=== PATIENT | male | born 1950 | race Caucasian/White ===

== ENCOUNTER 2018-05-26 13:35 | Outpatient (CLI) | payer MEDICARE, OTHER ==
--- NOTE | 2018-05-26 15:20 | MRI ---
MRI LUMBAR SPINE NONCONTRAST: History: Low back pain. FINDINGS: Radiographs are not available for direct correlation. Due to the position of the normal appearing con us medullaris and the appearance of ribs, the transitional vertebrae at the lumbosacral junction will be designated as L5, with the remainder numbered accordingly. There is desiccation of all of the intervertebral discs. Very mild chronic appearing compression of t he T12 vertebral body without signal abnormality. Mild discogenic endplate changes within the bone ma rrow. T12-L1: Disc space narrowing. Mild posterior disc bulge. Thecal sac is patent. Mild bilateral foramin al stenosis. L1-2: Diffuse posterior disc protrusion. Circumferential degenerative changes with mild to moderate stenosis of the central canal. Severe bilateral foraminal stenosis. L2-3: Posterior disc bulge. Circumferential degenerative changes with mild stenosis of the central ca nal. Severe bilateral foraminal stenoses. L3-4: Posterior disc bulge. Circumferential degenerative changes with mild stenosis of the central ca nal. Severe bilateral foraminal stenoses. L4-5: Mild posterior disc bulge. Mild stenosis of the central canal. Severe bilateral foraminal steno ses, left worse than right. L5-S1: Mild osteophytosis. Thecal sac and neural foramina are patent. IMPRESSION: 1. Severe multilevel degenerative changes throughout the lumbar spine, most severely involving the lo wer neural foramina as detailed above. Please note that transitional vertebra is present at the lumbo sacral junction and has been designated as the fifth vertebral segment based on position of the conus medullaris and the lowest most ribs. POS: [facility]
== END 2018-05-26 13:36 | disposition home or self-care (01) ==
LOC: MRI 13:35
PROVIDERS: ATTEND Family Medicine
DX: M54.5 Low back pain (principal); M47.896 Other spondylosis, lumbar region; M48.061 Spinal stenosis, lumbar region without neurogenic claudication; M51.86 Other intervertebral disc disorders, lumbar region; M99.83 Other biomechanical lesions of lumbar region; M51.26 Other intervertebral disc displacement, lumbar region; M25.78 Osteophyte, vertebrae
CPT/HCPCS: 72148

== ENCOUNTER 2019-01-20 10:13 | Observation (INO) | payer MEDICARE ==
[2019-01-20 11:06] LABS: #Eosinphils 0.1 thou/uL (0.0-0.7); #Lymphocytes 1.7 thou/uL (1.20-3.40); #Monocytes 1.3 thou/uL (0.11-0.59); #Neutrophils 13.6 thou/uL (1.40-6.50); %Basophils 0.2 % (0.0-1.0); %Eosinophils 0.6 % (0.0-10.0); %Lymphocytes 9.9 % (21.0-51.0); %Monocytes 7.6 % (0.0-10.0); %Neutrophils 81.7 % (42.0-75.0); Hemoglobin 14.3 g/dL (14.0-18.0); Mean Corpuscular HGB CONC 32.8 g/dL (32.0-36.0); Mean Corpuscular Hemoglobin 31.6 pg (27.0-31.0); Mean Corpuscular Volume 96.4 fL (78.0-98.0); Mean Platelet Volume 7.5 fL (7.4-10.4); Platelet Count 239 thou/uL (130-400); RBC Distribution Width 12.1 % (11.5-14.5); Red Blood Cell (RBC) Count 4.53 mill/uL (4.70-6.10); White Blood Cell (WBC) Count 16.7 thou/uL (4.8-10.8)
[2019-01-20 11:31] LABS: ALT (SGPT) 16 U/L (8-55); AST (SGOT) 18 U/L (5-34); Albumin 4.3 g/dL (3.4-4.8); Alkaline Phosphatase 72 U/L (40-150); Anion Gap 8 mmol/L (10-20); BUN (Urea Nitrogen) 16 mg/dL (8.4-25.7); Bilirubin, Total 0.8 mg/dL (0.2-1.2); Calc. Creatinine Clearance 0 mL/min (70-130); Calcium 9.3 mg/dL (7.8-10.44); Carbon Dioxide 28 mmol/L (23-31); Chloride 105 mmol/L (98-107); Estimated GFR-MDRD 80; Globulin 2.4 g/dL (2.4-3.5); Glucose 88 mg/dL (80-115); Potassium 4.3 mmol/L (3.5-5.1); Protein, Total 6.7 g/dL (5.8-8.1); Sodium 137 mmol/L (136-145)
--- NOTE | 2019-01-20 14:24 | RAD ---
PORTABLE AP CHEST RADIOGRAPH: Date: 01-20-19 History: Hypotension. Comparison: None available. FINDINGS: Cardiac silhouette is magnified by projection. Pulmonary vasculature is within normal limits. The gloria gs are clear. Remote right sided rib fractures are seen. Degenerative changes are noted in the spine. There is bilateral acromioclavicular joint osteoarthritis. Vascular calcifications are seen in the t horacic aorta. IMPRESSION: No acute cardiopulmonary process. POS: [facility]
[2019-01-20] MEDS ORDERED: traMADol HCl 50 MG TAB PO PRN (14:29)
[2019-01-20] MEDS ORDERED: Senokot S 8.6-50 MG TAB PO PRN (14:29)
[2019-01-20] MEDS ORDERED: Acetaminophen 325 MG TAB PO PRN (14:29)
[2019-01-20] MEDS ORDERED: HYDROcodone/Acetaminophen 5/325 mg Tablet PO PRN (14:29)
[2019-01-20] MEDS ORDERED: Guaifenesin DM 100-10/5 ML UDCUP PO PRN (14:29)
[2019-01-20 14:56] LABS: Bilirubin Negative (Negative); Blood, Urine Negative (Negative); Clarity CLEAR (Clear); Glucose, Urine (Dipstick) Negative (Negative); Leukocyte Negative (Negative); Nitrite Negative (Negative); Protein, Urine (Dipstick) Negative (Neg-Trace); Specific Gravity, Urine 1.008 (1.002-1.036); Urobilinogen 0.2 mg/dL (0.2-1.0); pH, Urine 7.5 (5.0-9.0)
[2019-01-20 14:59] LABS: Troponin I Less than 0.010 ng/mL (< 0.028)
--- NOTE | 2019-01-20 15:18 | HP ---
REASON FOR ADMISSION: Syncope. HISTORY OF PRESENTING ILLNESS: The patient gives history of taking all his blood pressure medications along with niacin, [place] supplement, and another supplement to reduce his triglycerides, all of which this morning. The niacin, omega-3 supplements, and another triglyceride lowering supplement were new that he got in the mail yesterday. He also started on Norvasc from last 2 days. After this, he ate his breakfast and tried to get up, felt dizzy. He wanted to go to his bedroom from the kitchen, but he could not make it. The patient says his knees buckled out and tried to lean onto the wall and had a safe fall. at bedside says that the patient was trying to communicate and passed out in between for less than a minute or so. This happened nearly 3 times. The patient apparently woke up and complained of palpitations. Finally, EMS was summoned and the patient was brought here. Complaints of cough with clear sputum due to allergies. He also smokes half pack a day. No complaints of urinary frequency or burning urination. He says he has history of prostate enlargement. No fever at home. The patient has chronic back pain, but nothing new at present. No chest pain or shortness of breath at present. PAST MEDICAL AND SURGICAL HISTORY: History of hypertension; benign prostatic hypertrophy; dyslipidemia; history of hep C, likely treated; hernia surgery; left arm broken bone surgery; right wrist surgery; history of broken ribs; pneumothorax in January of 1980. He has had damage in his neck at the C3 level, right knee surgery, colonoscopy, left knee replacement. CURRENT MEDICATIONS: 1. He was started on amlodipine 5 mg daily from last 2 weeks. 2. He also started taking niacin, omega-3 supplement, and another supplement to lower triglycerides all from today. 3. Lisinopril 20 mg p.o. q.a.m. 4. Omeprazole 40 mg p.o. q.a.m. 5. Finasteride 5 mg p.o. daily. 6. Coreg 6.25 mg p.o. twice daily. 7. Atorvastatin 40 mg p.o. daily. 8. Tizanidine 4 mg p.o. three times daily. 9. Cetirizine 10 mg p.o. q.p.m. 10. Tadalafil 25 mg p.r.n. 11. Ultram 50 mg p.o. q.p.m. 12. Ventolin 90 mcg p.r.n. 13. Aspirin 81 mg p.o. daily. 14. CoQ10 200 mg p.o. daily. 15. Multivitamin 1 tablet once daily. 16. BC Powder q.a.m. PERSONAL HISTORY: Smokes half pack a day. Does not abuse alcohol or drugs. FAMILY HISTORY: Father had history of CABG, aneurysm, and high blood pressure. He also had prostate cancer. Mother had lymphoma. CODE STATUS: Full. POWER OF CONSERVATION OFFICER: His . REVIEW OF SYSTEMS: CONSTITUTIONAL: Negative for weight loss or gain, ability to conduct usual activities. SKIN: Negative for rash, itching. EYES: Negative for double vision, pain. ENT/MOUTH: Negative for nose bleeding, neck stiffness, pain, tenderness. CARDIOVASCULAR: Negative for palpitations, dyspnea on exertion, orthopnea. RESPIRATORY: Negative for shortness of breath, wheezing, cough, hemoptysis, fever or night sweats. GASTROINTESTINAL: Negative for poor appetite, abdominal pain, heartburn, nausea , vomiting, constipation, or diarrhea. GENITOURINARY: Negative for urgency, frequency, dysuria, nocturia. MUSCULOSKELETAL: Negative for pain, swelling. NEUROLOGIC/PSYCHIATRIC: Negative for anxiety, depression. ALLERGY/IMMUNOLOGIC: Negative for skin rash, bleeding tendency. Please see short and difficult for urgency, frequency, dysuria, nocturia. MUSCULOSKELETAL: Negative for pain, swelling. NEUROLOGIC/PSYCHIATRIC: Negative for anxiety, depression. ALLERGY/IMMUNOLOGIC: Negative for skin rash, bleeding tendency. PHYSICAL EXAMINATION: GENERAL: The patient is a 68-year-old male, who is currently not in any acute distress. VITAL SIGNS: Blood pressure on arrival was 103/66. When EMS arrived, the patient's blood pressure was 70/60. He was given 1 L bolus of fluid in the ER. Pulse is 60 per minute, respiratory rate 14 per minute, temperature 98.1 degrees Fahrenheit, saturating 100% on room air. NECK: Supple. No elevated JVD. HEENT: Eyes; extraocular muscles intact. Pupils reacting to light. Oral cavity, mucous membranes are dry. No exudates or congestion. CARDIOVASCULAR: S1 and S2 heard. Regular rhythm. RESPIRATORY SYSTEM: Air entry 1+ bilateral. No rales. There is rhonchi plus bilateral. ABDOMEN: Soft. Bowel sounds heard. No tenderness, rigidity, or guarding. EXTREMITIES: No peripheral edema or calf tenderness. VASCULAR: Peripheral pulses 1+ bilateral. No ischemic ulcerations or gangrene. CENTRAL NERVOUS SYSTEM: No gross focal deficits noted. The patient is alert, awake, and oriented well. PSYCHIATRIC: The patient's mood is euthymic. No hallucinations or delusions. LABORATORY DATA: White count of 16, H and H 14 and 43, platelet count 239 with 81% neutrophils, MCV is 96. Electrolytes stable. BUN 16, creatinine 0.9. Lactic acid 1.6. Liver enzymes within normal limits. Troponin I is less than 0.01. Albumin is 4.3. Chest x-ray done shows no acute cardiopulmonary process. EKG done shows normal sinus rhythm at 61 beats per minute. CLINICAL IMPRESSION AND PLAN: The patient will be under observation on telemetry for an episode of syncope with severe hypotension with systolic blood pressures dropping in his 70s. He also started 3 new supplements including niacin, fish oil, and another supplement to lower triglycerides. Unclear if this had anything to do with it. He has an elevated white count with left shift, but normal lactic acid. Blood culture has been obtained in the ER. We will obtain a urinalysis, orthostatic blood pressures, and we will place him on normal saline at 80 mL per hour for a total of 2 L. We will continue him on aspirin, Lipitor, Coreg, Proscar, lisinopril at 5 mg twice daily, Protonix, tizanidine, Ultram for his chronic back pain. The patient is to ambulate with a walking program later this evening or tomorrow morning. He can be discharged safely home in am if his vitals remain stable in am. Otherwise, we will closely monitor him on telemetry for now. The patient states he has had a stress test done [address] Mendoza office, which was negative. He was suspected to have mild peripheral vascular disease then. Job ID: [id number] [facility]
[2019-01-20 15:34] VITALS: BMI 27.8
[2019-01-20] MEDS: Carvedilol 6.25 MG TAB PO SCH (17:11)
[2019-01-20] MEDS: tiZANidine HCl 4 MG TAB PO SCH ×2 (17:11→21:45)
[2019-01-20 17:39] LABS: Troponin I Less than 0.010 ng/mL (< 0.028)
[2019-01-20] MEDS: Sodium Chloride 0.9% 1,000 ML IV SCH (17:45)
[2019-01-20] MEDS ORDERED: Atorvastatin Calcium 40 MG TAB PO SCH (21:00)
[2019-01-20] MEDS: Lisinopril 5 MG TAB PO SCH (21:44)
[2019-01-21 05:00] LABS: #Eosinphils 0.2 thou/uL (0.0-0.7); #Lymphocytes 2.2 thou/uL (1.20-3.40); #Monocytes 0.7 thou/uL (0.11-0.59); #Neutrophils 5.6 thou/uL (1.40-6.50); %Basophils 0.3 % (0.0-1.0); %Eosinophils 1.8 % (0.0-10.0); %Lymphocytes 24.9 % (21.0-51.0); Hemoglobin 12.6 g/dL (14.0-18.0); Mean Corpuscular HGB CONC 33.3 g/dL (32.0-36.0); Mean Corpuscular Volume 96.1 fL (78.0-98.0); Mean Platelet Volume 7.4 fL (7.4-10.4); Platelet Count 215 thou/uL (130-400); RBC Distribution Width 12.1 % (11.5-14.5); Red Blood Cell (RBC) Count 3.95 mill/uL (4.70-6.10); White Blood Cell (WBC) Count 8.7 thou/uL (4.8-10.8)
[2019-01-21 05:21] LABS: Anion Gap 12 mmol/L (10-20); BUN (Urea Nitrogen) 12 mg/dL (8.4-25.7); Calc. Creatinine Clearance 138 mL/min (70-130); Calcium 8.8 mg/dL (7.8-10.44); Carbon Dioxide 20 mmol/L (23-31); Chloride 110 mmol/L (98-107); Estimated GFR-MDRD Greater than 90; Glucose 84 mg/dL (80-115); Potassium 3.8 mmol/L (3.5-5.1); Sodium 138 mmol/L (136-145)
[2019-01-21] MEDS: Sodium Chloride 0.9% 1,000 ML IV SCH (06:19)
[2019-01-21] MEDS: Lisinopril 5 MG TAB PO SCH (08:47)
[2019-01-21] MEDS: Carvedilol 6.25 MG TAB PO SCH (08:48)
[2019-01-21] MEDS: tiZANidine HCl 4 MG TAB PO SCH (08:55)
[2019-01-21] MEDS ORDERED: Finasteride 5 MG TAB PO SCH (09:00)
[2019-01-21] MEDS ORDERED: Aspirin Chewable 81 MG TAB PO SCH (09:00)
[2019-01-21] MEDS ORDERED: Loratadine 10 MG TAB PO SCH (09:00)
[2019-01-21] MEDS ORDERED: Enoxaparin Sodium 40 MG/0.4 ML SYRINGE SC SCH (09:00)
[2019-01-21 11:41] VITALS: BP 136/62; TEMP 97.9
--- NOTE | 2019-01-22 12:48 | DIS ---
DATE OF ADMISSION: 01/20/2019 DATE OF DISCHARGE: 01/21/2019 PRIMARY CARE PROVIDER: Fariba Mccabe, DISCHARGE DIAGNOSES: 1. Syncope. 2. Hypotension. CONDITION: Condition of the patient on the day of discharge: Stable. I assessed Mr. Steele on the day of discharge. He denies any chest pain or shortness of breath. Vital signs are stable. He is not hypotensive. There is no orthostatic hypotension. S1 and S2 are heard, regular. Lungs are clear to auscultation bilaterally. DISCHARGE MEDICATIONS: 1. Amlodipine has been discontinued. 2. Lisinopril dose is decreased to 5 mg 2 times a day. Otherwise, no change was made to his pre-admission home medications as dictated by Dr. Pham in his history and physical note, dated January 20, 2019. HOSPITAL COURSE: Mr. Steele is a pleasant 68-year-old gentleman, who was admitted to [facility] on observation status on January 20, 2019 following a syncopal episode secondary to hypotension. Please refer to Dr. Pham's history and physical note, dated January 20, 2019 for further details. He received intravenous fluids. He improved clinically. Amlodipine was discontinued. Lisinopril dose was decreased. He had preliminary blood cultures, which were negative at the time of this dictation. He is advised to follow up with his primary care provider for final blood culture report. He is also advised to check his blood pressure and heart rate 3 times a day and show the readings to his primary care provider. LABORATORY DATA: On the day of discharge, he has white count of 8700, hemoglobin 12.6, platelet count 215,000. Sodium 138, potassium 3.8, and creatinine 0.69. He had 3 troponins that were negative during this hospitalization. Many thanks for allowing me to participate in your patient's care. Please feel free to contact me with any questions or concerns. DISCHARGE DESTINATION: Home. Job ID: [id number]
== END 2019-01-21 12:23 | disposition home or self-care (01) ==
LOC: ERS 10:13 → 2SW 13:20
PROVIDERS: ADMIT Internal Medicine; ATTEND Internal Medicine
DX: I95.9 Hypotension, unspecified (principal); I10 Essential (primary) hypertension; N40.0 Benign prostatic hyperplasia without lower urinary tract symptoms; E78.5 Hyperlipidemia, unspecified; F17.210 Nicotine dependence, cigarettes, uncomplicated; Z79.82 Long term (current) use of aspirin; Z79.899 Other long term (current) drug therapy
CPT/HCPCS: 71045; 80048; 80053; 81003; 83605; 84484 ×2; 85025 ×2; 87040; 87086; 93005; 96360; 96361 ×2; 96372; 99285; G0378 ×2; 36415; J1650

== ENCOUNTER 2019-04-07 11:36 | Outpatient (CLI) | payer MEDICARE, OTHER ==
--- NOTE | 2019-04-07 14:19 | RAD ---
CERVICAL SPINE 7 VIEWS: Date: 04/07/19 HISTORY: Cervical radiculopathy. FINDINGS: The vertebral bodies of the cervical spine maintain height. There are degenerative disc changes at al l levels. There is a slight posterolisthesis at C3-4 measured at 4-5 mm. This does not appear to sign ificantly change with flexion and extension. Posterior spondylosis noted at all levels. Loss of disc space is seen throughout, most prominent at C 5-6 and C6-7. Anterior osteophytes. Facet hypertrophy. Foraminal encroachment at numerous levels due to hypertrophic change. IMPRESSION: There are moderate degenerative changes of the cervical spine as described. POS: [facility]
--- NOTE | 2019-04-07 15:25 | MRI ---
MRI CERVICAL SPINE WITHOUT CONTRAST: Date: 04/07/19 Multiplanar, multisequential imaging of cervical spine obtained. INDICATION: Cervical radiculopathy. FINDINGS: Moderate to severe degenerative changes throughout the cervical spine. Loss of disc space at all leve ls. Prominent anterior osteophytes and posterior spondylosis. No evidence of significant vertebral johnny dy edema. No evidence of acute compression. At C2-3, mild disc bulge effaces the anterior subarachnoid space. No cord impingement or foraminal st enosis. At C3-4, posterior disc bulge and spondylosis compress the cord, indenting the anterior cord. Left fo raminal narrowing secondary to uncinate hypertrophy. There is a slight posterolisthesis at C3-4 measured at 3-4 mm. At C4-5, posterior disc bulge and spondylosis abut the anterior cord. Bilateral foraminal narrowing d ue to facet and uncinate hypertrophy. At C5-6, posterior disc bulge and spondylosis flatten the thecal sac and mildly efface the anterior s ubarachnoid space. No cord impingement. Mild foraminal narrowing due to facet and uncinate hypertroph y. At C6-7, posterior disc bulge and spondylosis compress the thecal sac and efface the anterior subarac hnoid space. These changes may abut the anterior cord. Bilateral foraminal encroachment due to facet and uncinate hypertrophy. Cord signal appears normal and preserved. IMPRESSION: 1. Moderately severe cervical canal stenosis at C3-4. There is a slight posterolisthesis and there a re posterior spondylitic changes which compress the cord as described above. 2. Posterior spondylosis is also prominent at C6-7 without significant cord impingement. See descrip tion at each level above. POS: [facility]
== END 2019-04-07 11:37 | disposition home or self-care (01) ==
LOC: BICMRI 11:36
PROVIDERS: ATTEND Anesthesiology Pain Medicine
DX: M47.22 Other spondylosis with radiculopathy, cervical region (principal); M48.02 Spinal stenosis, cervical region; M43.12 Spondylolisthesis, cervical region
CPT/HCPCS: 72052; 72141

== ENCOUNTER 2019-08-12 10:23 | Outpatient (CLI) | payer MEDICARE, OTHER ==
--- NOTE | 2019-08-12 12:13 | CT ---
Cervical spine CT without contrast: 08/12/2019 COMPARISON: None HISTORY: Cervical spondylosis with myelopathy, neck pain with right shoulder radiculopathy TECHNIQUE: Axial CT imaging at 2 mm intervals from skull base through lung apices. Coronal and sagitt al reformatted imaging FINDINGS: There is moderate degenerative change at the atlantoaxial interspace. Craniocervical juncti on and cervicothoracic junction appear intact. No significant anterolisthesis or retrolisthesis is noted within the cervical spine. The occipital condyles, the dens, and the C1 to articulation appear within normal limits. C2-3: No osseous cause of significant central canal or neural foraminal stenosis C3-4: Disc space narrowing present with posterior disc osteophyte complex causing moderate central ca nal stenosis, particularly on the right. Significant bilateral facet and uncovertebral osteophyte formation noted with moderate left and severe right neural foraminal stenosis. C4-5: Uncovertebral osteophyte formation noted, left greater than right. There is disc space narrowin g with small disc osteophyte complex. Probable mild central canal stenosis and mild/moderate neural foraminal stenosis, left greater than right. C5-6: There is disc space narrowing and bilateral facet/uncovertebral osteophyte formation, right gre ater than left. Moderate right and mild left neural foraminal stenosis suspected. Probable mild central canal stenosis. C6-7: There is disc space narrowing and degenerative endplate change with bilateral uncovertebral ost eophyte formation, left greater than right. Moderate left and mild/moderate right neural foraminal stenosis. C7-T1: Mild bilateral facet hypertrophy. No osseous cause of significant central canal or neural fora kelsea stenosis. There is a benign hemangioma associated with the C6 vertebral body and right C6 pedicle. No acute fracture or evidence of dislocation is seen. IMPRESSION: Multilevel cervical spine degenerative change as detailed above.
== END 2019-08-12 10:24 | disposition home or self-care (01) ==
LOC: BICCT 10:23
PROVIDERS: ATTEND Surgery
DX: M47.12 Other spondylosis with myelopathy, cervical region (principal)
CPT/HCPCS: 72125

== ENCOUNTER 2019-08-31 10:30 | Inpatient (IN) | payer MEDICARE, OTHER ==
[2019-10-05] MEDS ORDERED: Thrombin 5000 UNITS/5 ML VIAL ONE (06:35)
[2019-10-05] MEDS ORDERED: Sodium Chloride 0.9% 10 ML ONE ×2 (06:35→10:31)
[2019-10-05] MEDS ORDERED: Fentanyl 100 MCG/2 ML VIAL ONE ×4 (06:51→13:43)
[2019-10-05] MEDS ORDERED: Midazolam HCl 2 mg/2 ml Vial ONE (06:51)
[2019-10-05] MEDS ORDERED: Bacitracin Zinc Ointment 30 gm TUBE ONE (07:03)
[2019-10-05 07:19] LABS: #Basophils 0.1 thou/uL (0.0-0.2); #Eosinphils 0.3 thou/uL (0.0-0.7); #Lymphocytes 1.8 thou/uL (1.20-3.40); #Monocytes 0.6 thou/uL (0.11-0.59); #Neutrophils 6.2 thou/uL (1.40-6.50); %Eosinophils 2.9 % (0.0-10.0); %Lymphocytes 19.8 % (21.0-51.0); %Monocytes 6.6 % (0.0-10.0); %Neutrophils 69.7 % (42.0-75.0); Hemoglobin 14.1 g/dL (14.0-18.0); Mean Corpuscular HGB CONC 34.5 g/dL (32.0-36.0); Mean Corpuscular Hemoglobin 32.9 pg (27.0-31.0); Mean Corpuscular Volume 95.6 fL (78.0-98.0); Mean Platelet Volume 6.9 fL (7.4-10.4); Platelet Count 274 thou/uL (130-400); RBC Distribution Width 12.2 % (11.5-14.5); Red Blood Cell (RBC) Count 4.28 mill/uL (4.70-6.10); White Blood Cell (WBC) Count 8.9 thou/uL (4.8-10.8)
[2019-10-05 07:33] LABS: Anion Gap 12 mmol/L (10-20); BUN (Urea Nitrogen) 11 mg/dL (8.4-25.7); Calc. Creatinine Clearance 117 mL/min (70-130); Calcium 9.8 mg/dL (7.8-10.44); Carbon Dioxide 29 mmol/L (23-31); Chloride 105 mmol/L (98-107); Estimated GFR-MDRD Greater than 90; Glucose 88 mg/dL (80-115); Potassium 4.6 mmol/L (3.5-5.1); Sodium 141 mmol/L (136-145)
[2019-10-05 07:45] LABS: Prothrombin Time 12.9 SEC (12.0-14.7)
[2019-10-05] MEDS ORDERED: Vecuronium 10 MG VIAL ONE (09:41)
[2019-10-05] MEDS ORDERED: PHENYLEPHRINE-NS 100 MCG/ML 10 ML SYRINGE ONE ×2 (09:41→11:40)
[2019-10-05] MEDS ORDERED: Lidocaine 1% PF 5 ML VIAL ONE (09:41)
[2019-10-05] MEDS ORDERED: Rocuronium Bromide 10 MG/ML (10ML VIAL) ONE (09:41)
[2019-10-05] MEDS ORDERED: ePHEDrine/0.9% NaCl/PF SYRINGE 50 mg/10 ml ONE (09:41)
[2019-10-05] MEDS ORDERED: Ketorolac Tromethamine 30 MG/ML VIAL ONE (09:41)
[2019-10-05] MEDS ORDERED: PROPOFOL 200 MG/20 ML VIAL ONE (09:41)
[2019-10-05] MEDS ORDERED: Dexamethasone 20 MG/5 ML VIAL ONE (09:41)
[2019-10-05] MEDS ORDERED: Ondansetron PF 4 MG/2 ML Vial ONE (09:41)
[2019-10-05] MEDS ORDERED: Glycopyrrolate 0.2 MG/ML 5 ML SYRINGE ONE (09:41)
[2019-10-05] MEDS ORDERED: Phenylephrine HCL 10 MG/ML VIAL ONE (11:39)
[2019-10-05] MEDS ORDERED: Promethazine HCl 25 MG/ML VIAL SLOW IVP PRN ×2 (12:19→13:22)
[2019-10-05] MEDS ORDERED: Promethazine HCl 25 MG/ML VIAL IM PRN ×2 (12:19→13:22)
[2019-10-05] MEDS ORDERED: Ondansetron HCl/PF 4 MG/2 ML Vial IVP PRN ×2 (12:19→13:22)
[2019-10-05] MEDS ORDERED: HYDROmorphone 2 MG/ML VIAL SLOW IVP PRN (12:19)
[2019-10-05] MEDS ORDERED: Bisacodyl 10 MG SUPP PR PRN (13:18)
[2019-10-05] MEDS ORDERED: Fleet Enema 133 ML BOT PR PRN (13:18)
[2019-10-05] MEDS ORDERED: Mag-Al 1200 mg/1200 mg/30 ML UDCUP PO PRN (13:18)
[2019-10-05] MEDS ORDERED: Ondansetron PF 4 MG/2 ML Vial IVP PRN (13:18)
[2019-10-05] MEDS ORDERED: traMADol HCl 50 MG TAB PO PRN (13:18)
[2019-10-05] MEDS ORDERED: Milk Of Magnesia 30 ML UDCUP PO PRN (13:18)
[2019-10-05] MEDS ORDERED: Acetaminophen 325 MG TAB PO PRN (13:18)
[2019-10-05] MEDS ORDERED: Morphine Sulfate 2 MG/ML SYRINGE SLOW IVP PRN (13:22)
[2019-10-05] MEDS ORDERED: Diazepam 10 MG/2 ML SYRINGE IVP PRN (13:23)
[2019-10-05] MEDS ORDERED: PROVENTIL INHALER 6.7 G (200 INHALATIONS) INH PRN ×2 (13:26)
[2019-10-05] MEDS ORDERED: [UNRECOGNIZED DRUG - REMARK] FS PRN (13:38)
[2019-10-05] MEDS ORDERED: HYDROmorphone 0.5 MG/0.5 ML SYRINGE ONE ×2 (14:03→14:20)
--- NOTE | 2019-10-05 14:15 | OP ---
DATE OF PROCEDURE: 10/05/2019 LOCATION: OR 12. FIELD ARTILLERY TARGETING TECHNICIAN: Howard. PREPROCEDURE DIAGNOSIS: Multilevel cervical stenosis with myelopathy and radiculopathy. POSTPROCEDURE DIAGNOSIS: Multilevel cervical stenosis with myelopathy and radiculopathy. PROCEDURES PERFORMED: 1. Anterior C3-C4, C4-C5, C5-C6 diskectomies for decompression of spinal cord nerve roots. 2. Placement of interbody spacers, packed with local bone autograft, obtained from same incision, and allograft C3-C4, C4-C5, and C5-C6 for arthrodesis. 3. Anterior cervical plate and screw fixation, C3, C4, C5, C6. 4. Use of operative microscope for microdissection. 5. C3-C4, C4-C5, and C5-C6 laminectomies, partial facetectomies, and foraminotomies. 6. C3, C4, C5, C6 posterior screw reena fixation. 7. Lateral mass arthrodesis posterolaterally with local bone autograft obtained from same incision and allograft for fusion, C3-C4, C4-C5, C5-C6. DESCRIPTION OF PROCEDURE: After informed consent was obtained from the patient, the patient was brought to the OR. Proper patient, pause, and identification were carried out. He was placed under excellent general endotracheal anesthesia and positioned supine on the OR table. Right anterior oblique sonu was drawn out, which allowed for approach to the C3 through C6 segments anteriorly. This region was sterilely cleansed, prepared, and draped. Proper patient, pause, and identification were carried out. The wound was then opened with combination of sharp, monopolar, and blunt dissection. The anterior C3, C4, C5, C6 segments were exposed. Following procession to the cervical spine and sweeping of the longus colli muscles laterally, our trajectory was lateral to the larynx and pharynx and medial to the right carotid sheath. Localization film confirmed area of interest. We then performed distraction at C3-C4 and diskectomy was performed with use of the operative microscope for microdissection with decompression of the ventral portion of spinal cord and bilateral C4 nerve roots. The endplates were prepared and interbody spacer packed with graft was placed for initiation of arthrodesis. Distraction was released and the same procedure was done at C4-C5 and C5-C6 with diskectomy and decompression of the spinal cord at C5 nerve roots and C6 nerve roots respectively and the spinal cord at those segments of C4-C5 and C5-C6. The endplates were prepared accordingly and arthrodesis was initiated with placement of interbody spacers at C4-C5 and C5-C6. Microscope was then removed. Anterior cervical plate and screw fixation with final tightening then occurred at C3, C4, C5, C6. Copious irrigation occurred throughout as did maximize in hemostasis. The wound was then closed in anatomic layers over drain. The patient underwent placement of the Kumar Rivas to the skull and he was flipped prone and posterior linear incision was drawn out dorsally. This region was sterilely cleansed, prepared, and draped. Proper patient, pause, and identification were carried out. The wound was then opened with a combination of sharp, monopolar, and blunt dissection and a C3, C4, C5, C6 segment dorsal spines and lamina were exposed along with the lateral masses. Localization film confirmed area of interest. We then performed C3-C4, C4-C5 and C5-C6 laminectomies, partial facetectomies, and foraminotomies, and posterior screw reena fixation at C3, C4, C5, C6 with final tightening occurred. There was no spinal fluid leak. We then performed initiation of arthrodesis in the lateral masses over the posterior lateral regions at C3-C4, C4-C5, C5-C6. Copious irrigation occurred throughout as did maximize in hemostasis. The wound was closed in anatomic layers following sprinkling of vancomycin powder. The patient emerged from anesthesia. Job ID: [id number]
[2019-10-05] MEDS: HYDROcodone/Acetaminophen 7.5/325 mg Tablet PO PRN ×3 (16:09→23:57)
[2019-10-05] MEDS: Ketorolac Tromethamine 30 MG/ML VIAL IVP PRN (16:10)
[2019-10-05] MEDS: CEFAZOLIN 2 GM in Premix Bag 1 BAG IVPB SCH ×2 (16:17→23:58)
[2019-10-05] MEDS: Sodium Chloride 0.9% 1,000 ML IV SCH ×2 (16:17→20:25)
[2019-10-05 16:44] VITALS: BMI 27.1
[2019-10-05] MEDS: Morphine 2 MG/ML SYRINGE SLOW IVP PRN (17:38)
[2019-10-05] MEDS: Carvedilol 6.25 MG TAB PO SCH (20:15)
[2019-10-05] MEDS: Atorvastatin Calcium 40 MG TAB PO SCH (20:15)
[2019-10-05] MEDS: Finasteride 5 MG TAB PO SCH (20:16)
[2019-10-05] MEDS: Loratadine 10 MG TAB PO SCH (20:16)
[2019-10-05] MEDS: Lisinopril 5 MG TAB PO SCH (20:16)
[2019-10-05] MEDS: tiZANidine HCl 4 MG TAB PO PRN (23:57)
[2019-10-06] MEDS: Morphine 2 MG/ML SYRINGE SLOW IVP PRN ×2 (03:07→20:36)
[2019-10-06] MEDS: HYDROcodone/Acetaminophen 7.5/325 mg Tablet PO PRN ×4 (04:26→23:20)
[2019-10-06] MEDS: CEFAZOLIN 2 GM in Premix Bag 1 BAG IVPB SCH ×3 (06:04→23:21)
[2019-10-06] MEDS: Lisinopril 5 MG TAB PO SCH ×2 (08:52→20:27)
[2019-10-06] MEDS: Carvedilol 6.25 MG TAB PO SCH ×2 (08:53→20:27)
[2019-10-06] MEDS ORDERED: FLU VACC TS2019-20(65YR UP)/PF 180 MCG/0.5 ML SYRINGE IM ONE (16:30)
[2019-10-06] MEDS: Sodium Chloride 0.9% 1,000 ML IV SCH ×2 (17:36→23:26)
[2019-10-06] MEDS: Finasteride 5 MG TAB PO SCH (20:27)
[2019-10-06] MEDS: Loratadine 10 MG TAB PO SCH (20:27)
[2019-10-06] MEDS: Atorvastatin Calcium 40 MG TAB PO SCH (20:27)
--- NOTE | 2019-10-06 21:40 | PRG ---
DATE OF SERVICE: 10/06/2019 This is Donnie Lawrence PA-C dictating a report for Fredi Fonseca MD. Mr. Steele is postoperative day #1, having undergone anterior-posterior cervical fusions. The patient is doing pretty well today. Does have some posterior neck pain. He does not have any arm or leg pain complaints. He states his hand function is slightly improved, but he still has some paresthesias, especially into the left greater than right hands. He is tolerating a soft diet and is tolerating pills. His CHAN drain should note that the patient was originally seen at 8:00 a.m. today. He remains with good strength in all the extremities. He has been up walking. He has asked that we remove his Barton catheter. We will work on pain control. Should this be in order in the next day or two, he likely will go home hopefully with home health. We have not done our inpatient rehab screen at this time as the patient really does appear to be high functioning. Pain control again is paramount and we will remain or keep the drain in with continued antibiotics, Ancef. Please call with any changes in the patient's neurologic status. Otherwise, the patient appears to be doing well postoperatively. Job ID: [id number]
[2019-10-06] MEDS: tiZANidine HCl 4 MG TAB PO PRN (23:20)
[2019-10-07] MEDS: Morphine 2 MG/ML SYRINGE SLOW IVP PRN (02:50)
[2019-10-07] MEDS: Ketorolac Tromethamine 30 MG/ML VIAL IVP PRN (02:51)
[2019-10-07] MEDS: CEFAZOLIN 2 GM in Premix Bag 1 BAG IVPB SCH ×3 (06:04→22:28)
[2019-10-07] MEDS: Carvedilol 6.25 MG TAB PO SCH ×2 (08:31→20:49)
[2019-10-07] MEDS: Lisinopril 5 MG TAB PO SCH ×2 (08:31→20:49)
[2019-10-07] MEDS: tiZANidine HCl 4 MG TAB PO PRN ×2 (11:10→20:57)
[2019-10-07] MEDS: HYDROcodone/Acetaminophen 7.5/325 mg Tablet PO PRN ×3 (11:10→22:29)
[2019-10-07] MEDS ORDERED: Diazepam 10 MG/2 ML SYRINGE IVP PRN (12:44)
[2019-10-07] MEDS ORDERED: Pantoprazole 40 MG VIAL IVP SCH (13:00)
[2019-10-07] MEDS ORDERED: Dexamethasone 6 MG in Sodium Chloride 0.9% 50 ML IVPB SCH (13:00)
[2019-10-07] MEDS: Pantoprazole 40 MG VIAL IVP SCH (13:28)
--- NOTE | 2019-10-07 14:46 | PRG ---
DATE OF SERVICE: 10/07/2019 This is Donnie Lawrence PA-C dictating a report for Fredi Fonseca MD. Mr. Steele is postoperative day #2, having undergone anterior and posterior cervical fusions. The patient states he is having some discomfort and difficulty with swallowing pills. He is tolerating full liquid diet. He remains with his CHAN drain in and it is drained 20 mL over the last 24 hours. He remains on Ancef. We will discontinue his Barton catheter today. He has some nondermatomal aching into the bilateral arms, significant posterior neck pain consistent with muscle spasm. With his difficulty with swallowing, he has been requiring IV pain medications. He would likely benefit from inpatient rehab, and I have placed a consult for this. His was updated at bedside. The patient has been ambulating and remains with good strength in all the extremities. His anterior and posterior cervical wound dressings remain dry. Please call with any changes in patient's neurologic status. Otherwise again, we will discontinue his Barton and move toward inpatient rehab. Job ID: [id number]
[2019-10-07] MEDS: Atorvastatin Calcium 40 MG TAB PO SCH (20:48)
[2019-10-07] MEDS: Loratadine 10 MG TAB PO SCH (20:49)
[2019-10-07] MEDS: Finasteride 5 MG TAB PO SCH (20:50)
[2019-10-07] MEDS: Sodium Chloride 0.9% 1,000 ML IV SCH (20:53)
[2019-10-08] MEDS: CEFAZOLIN 2 GM in Premix Bag 1 BAG IVPB SCH (06:37)
[2019-10-08] MEDS: HYDROcodone/Acetaminophen 7.5/325 mg Tablet PO PRN ×2 (06:38→11:17)
[2019-10-08] MEDS: Lisinopril 5 MG TAB PO SCH (08:40)
[2019-10-08] MEDS: Carvedilol 6.25 MG TAB PO SCH (08:40)
[2019-10-08] MEDS: Pantoprazole 40 MG VIAL IVP SCH (08:42)
[2019-10-08] MEDS ORDERED: Dexamethasone 4 mg/ml Vial SLOW IVP SCH (09:00)
[2019-10-08 10:40] VITALS: BP 125/61; TEMP 98
--- NOTE | 2019-10-08 11:15 | PRG ---
DATE OF SERVICE: 10/08/2019 Andrés Steele is postoperative day 3 following the anterior-posterior decompression and fusion. He is doing well. His drain output is minimized. We will remove it. Neurologically has improved. He is going home. Job ID: [id number]
== END 2019-10-08 12:44 | disposition home or self-care (01) | DRG 454 ==
LOC: SURG A 10-05 05:49
PROVIDERS: ADMIT Surgery; ATTEND Surgery
PROC: 0RG20A0 Fusion of 2 or more Cervical Vertebral Joints with Interbody Fusion Device, Anterior Approach, Anterior Column, Open Approach (ICD-10-PCS; principal; 2019-10-05)
PROC: 0RG2071 Fusion of 2 or more Cervical Vertebral Joints with Autologous Tissue Substitute, Posterior Approach, Posterior Column, Open Approach (ICD-10-PCS; 2019-10-05)
PROC: 0RB30ZZ Excision of Cervical Vertebral Disc, Open Approach (ICD-10-PCS; 2019-10-05)
PROC: 00NW0ZZ Release Cervical Spinal Cord, Open Approach (ICD-10-PCS; 2019-10-05)
PROC: 01N10ZZ Release Cervical Nerve, Open Approach (ICD-10-PCS; 2019-10-05)
DX: M48.02 Spinal stenosis, cervical region (principal); G99.2 Myelopathy in diseases classified elsewhere; M54.12 Radiculopathy, cervical region
CPT/HCPCS: 36415; 76000; 80048; 85025; 85610; 85730; 86850; 86900; 86901; C1713; C1768; C1776; C9113; J0690; J1100; J1170; J1885; J2001; J2250; J2270; J2370; J2405; J2704; J3010; J3360; J3370; J3490

== ENCOUNTER 2019-08-31 11:49 | Outpatient (CLI) | payer MEDICARE, OTHER ==
[2019-08-31 12:02] LABS: Mean Corpuscular HGB CONC 33.7 g/dL (32.0-36.0); Mean Corpuscular Hemoglobin 32.4 pg (27.0-31.0); Mean Corpuscular Volume 96.2 fL (78.0-98.0); Platelet Count 314 thou/uL (130-400); RBC Distribution Width 11.9 % (11.5-14.5); Red Blood Cell (RBC) Count 4.32 mill/uL (4.70-6.10); White Blood Cell (WBC) Count 10.2 thou/uL (4.8-10.8)
[2019-08-31 12:10] LABS: INR-International Normal Ratio 0.9; PTT 26.6 SEC (22.9-36.1); Prothrombin Time 12.2 SEC (12.0-14.7)
[2019-08-31 12:30] LABS: Anion Gap 13 mmol/L (10-20); BUN (Urea Nitrogen) 15 mg/dL (8.4-25.7); Calc. Creatinine Clearance 0 mL/min (70-130); Calcium 9.5 mg/dL (7.8-10.44); Carbon Dioxide 27 mmol/L (23-31); Chloride 103 mmol/L (98-107); Estimated GFR-MDRD 90; Glucose 74 mg/dL (80-115); Potassium 4.5 mmol/L (3.5-5.1); Sodium 138 mmol/L (136-145)
--- NOTE | 2019-09-02 23:09 | EKG ---
Test Reason : Blood Pressure : / mmHG Vent. Rate : 057 BPM Atrial Rate : 057 BPM P-R Int : 140 ms QRS Dur : 088 ms QT Int : 432 ms P-R-T Axes : 049 041 039 degrees QTc Int : 420 ms Sinus bradycardia Possible Anterior infarct , age undetermined Abnormal ECG When compared with ECG of 20-JAN-2019 10:22, No significant change was found Confirmed by Deborah HARRIS ([id number]) on 09/02/2019 11:08:41 PM Referred By: ÁNGELA Confirmed By:Deborah HARRIS
== END 2019-08-31 11:50 | disposition home or self-care (01) ==
LOC: LABBT 11:49
PROVIDERS: ATTEND Surgery
DX: Z01.818 Encounter for other preprocedural examination (principal); M54.12 Radiculopathy, cervical region; G95.89 Other specified diseases of spinal cord
CPT/HCPCS: 80048; 85027; 85610; 85730; 93005; 93010

== ENCOUNTER 2019-11-15 13:17 | Outpatient (CLI) | payer MEDICARE, OTHER ==
--- NOTE | 2019-11-15 13:56 | RAD ---
CERVICAL SPINE SERIES 4 VIEWS: Date: 11/15/19 HISTORY: Postop. FINDINGS: Patient has undergone an anterior cervical fusion with placement of plate and screws extending from C 3 to C6, and posterior facet screws at the same levels. Laminectomy changes are seen. Severe disc jose rowing seen at C6-7. IMPRESSION: Postoperative changes of the spine. POS: [facility]
== END 2019-11-15 13:18 | disposition home or self-care (01) ==
LOC: TBSIIMAG 13:17
PROVIDERS: ATTEND Surgery
DX: M54.2 Cervicalgia (principal); Z98.890 Other specified postprocedural states
CPT/HCPCS: 72040

== ENCOUNTER 2020-07-24 11:49 | Outpatient (CLI) | payer MEDICARE, OTHER ==
--- NOTE | 2020-07-24 12:28 | RAD ---
EXAM: XR Cerv Sp Ap Lat STANDARD PROVIDED CLINICAL HISTORY: Cervical stenosis COMPARISON: 11/15/2019 FINDINGS: Postoperative changes as previously described appears stable. No evidence for hardware loosening or m igration. No prevertebral soft tissue swelling apparent. Stable disc space narrowing and endplate degenerative change at C6-7. Cervical alignment appears normal. Vertebral body heights are preserved. Visualized lung apices appear clear. IMPRESSION: Stable appearing postoperative and degenerative change.
== END 2020-07-24 11:50 | disposition home or self-care (01) ==
LOC: BICRAD 11:49
PROVIDERS: ATTEND Surgery
DX: M48.02 Spinal stenosis, cervical region (principal); M47.812 Spondylosis without myelopathy or radiculopathy, cervical region; Z98.890 Other specified postprocedural states
CPT/HCPCS: 72040

== ENCOUNTER 2021-06-26 12:34 | Outpatient (CLI) | payer MEDICARE, OTHER ==
[2021-06-26] MEDS ORDERED: Magnevist 469MG/ML 20 ML VIAL ONE (16:37)
== END 2021-06-26 12:35 | disposition home or self-care (01) ==
LOC: BICMRI 12:34
PROVIDERS: ATTEND Psychiatry & Neurology Neurology
DX: R41.3 Other amnesia (principal)
CPT/HCPCS: 70553; 82565; A9579

== ENCOUNTER 2021-07-23 17:30 | Outpatient (CLI) | payer MEDICARE, OTHER | END 2021-07-23 17:31 | disposition home or self-care (01) | LOC: SLEEPLAB 17:30 | PROVIDERS: ATTEND Family Medicine | DX: G47.33 Obstructive sleep apnea (adult) (pediatric) (principal); R53.83 Other fatigue; K21.9 Gastro-esophageal reflux disease without esophagitis; I10 Essential (primary) hypertension; G47.00 Insomnia, unspecified; R06.83 Snoring | CPT/HCPCS: 95806 ==

== ENCOUNTER 2022-08-05 13:02 | Outpatient (CLI) | payer MEDICARE | END 2022-08-05 13:03 | disposition home or self-care (01) | LOC: RAD 13:02 | PROVIDERS: ATTEND Internal Medicine | DX: J44.9 Chronic obstructive pulmonary disease, unspecified (principal) | CPT/HCPCS: 71046 ==